=== PATIENT | male | born 1940 | race Caucasian/White ===

== ENCOUNTER → 2020-03-14 13:28 | Outpatient (BNVA) | payer MEDICARE, OTHER, SELFPAY | PROVIDERS: Family Provider Nurse Practitioner; PCP Nurse Practitioner; Visit Provider Urology | DX: N40.1 Benign prostatic hyperplasia with lower urinary tract symptoms (principal); N40.0 Benign prostatic hyperplasia without lower urinary tract symptoms; N13.8 Other obstructive and reflux uropathy | CPT/HCPCS: 81001 ==

== ENCOUNTER → 2020-09-18 08:54 | Outpatient (BNVA) | payer MEDICARE, OTHER, SELFPAY | PROVIDERS: Family Provider Nurse Practitioner; PCP Nurse Practitioner; Visit Provider Urology | DX: N40.1 Benign prostatic hyperplasia with lower urinary tract symptoms (principal); N13.8 Other obstructive and reflux uropathy | CPT/HCPCS: 81003 ==

== ENCOUNTER → 2021-03-18 08:50 | Outpatient (BNVA) | payer MEDICARE, OTHER, SELFPAY | PROVIDERS: Family Provider Nurse Practitioner; PCP Nurse Practitioner; Visit Provider Urology | DX: N13.8 Other obstructive and reflux uropathy (principal); N40.1 Benign prostatic hyperplasia with lower urinary tract symptoms | CPT/HCPCS: 81003 ==

== ENCOUNTER → 2021-04-12 12:53 | Outpatient (BNVA) | payer MEDICARE, OTHER, SELFPAY | PROVIDERS: Family Provider Nurse Practitioner; PCP Nurse Practitioner; Visit Provider Urology | DX: Z01.812 Encounter for preprocedural laboratory examination (principal); Z20.822 Contact with and (suspected) exposure to COVID-19 | CPT/HCPCS: 87635 ==

== ENCOUNTER 2021-04-18 14:16 | Observation (INO) | payer MEDICARE, OTHER, SELFPAY ==
[2021-04-17 15:19] VITALS: BMI 26.2
[2021-04-18] VITALS (14 sets, daily range): BP systolic 105–160; BP diastolic 60–85; PULSE 60–80; RESP 12–20; TEMP 36.1–36.6; O2SAT 92–97
[2021-04-18] MEDS: sodium chloride 0.9% 1,000 ML 30 ML IV (11:14)
--- NOTE | 2021-04-18 12:37 | W.PM.OPSUD ---
Surgery/Procedure H&P Update DATE OF PROCEDURE: April 18, 2021 DATE H&P PERFORMED: 03/18/21 H&P UPDATE INFORMATION: I have reviewed H&P completed within last 30 days, I have examined patient prior to procedure, No changes to prior documentation and H&P is in [facility] on date indicated PREOP DIAGNOSIS: Refractory BPH/obstruction PLANNED PROCEDURE: Operation Date: 04/18/21 13:05 Proposed Procedures p Cystoscopy(Not Applicable) - Nicolas Byrd MD s Transurethral Resection Of Prostate(Not Applicable) - Nicolas Byrd MD
[2021-04-18] MEDS: levofloxacin-dextrose 5 % 500 MG/100 ML PREMIX 100 MG IV (12:48)
--- NOTE | 2021-04-18 12:48 | P.OP_ITS ---
Operative Report Date of procedure: April 18, 2021 Pre-op Diagnosis: Refractory BPH/obstruction Post-op diagnosis: same Procedure Done: Cystoscopy, transurethral resection/vaporization of the prostate Pathology: other Pathology: Prostate chips Surgeon: Rochelle Anesthesia: General Estimated blood loss: Minimal Urine output: Not measured Complications: none Findings: Trilobar enlargement of the prostate. Condition: stable Disposition: PACU Brief History: Mr. Hall is a very pleasant 80-year-old white male with progressive bladder outlet obstructive symptoms for many years. Has been on maximal medical therapy with persistence of symptoms and ultimately after a long period of consideration decided to proceed with transurethral resection/vaporization of the prostate. Benefits and risks thoroughly discussed. Informed consent was obtained. Procedure: After routine preoperative evaluation examination and obtaining of informed consent he was taken to the operating suite on 04/18/2021 where general anesthesia was administered without difficulty after appropriate timeout was performed, SCDs confirmed to be functioning, preoperative antibiotics administered, beta- donna protocol confirmed. Prepped and draped in usual sterile fashion in dorsolithotomy position paying careful attention to avoiding pressure points. 21 [place] cystoscope with 30 degree lens was introduced into the urethral meatus and advanced into the bladder without difficulty. The bladder was systematically examined with 30 and 70 degree lenses. The orifices were confir med to be well away from the bladder neck. Bladder wall showed significant trabeculation. No other significant pathologic features were identified. Urethra was then calibrated with Bailey sounds and easily accommodated 30 Bruneian. 2% lidocaine jelly was instilled into the urethra and then a 25 [place]uneian continuous-flow resectoscope sheath with visual obturator in place was advanced into the bladder without difficulty. The gyrus bipolar system was utilized with the super loop initially and the button probe for vaporization. Resection: Circumferential resection of the bladder neck was performed to resect the intravesically protruding median lobes. Resection was taken down to the circular fibers of the bladder neck. The left lateral lobe was then resected from the bladder neck out to but not distal to the verumontanum and down to the surgical capsule. The right lateral lobe was then resected in the same longitudinal extent and depth. There remained a large amount of tissue on the floor the prostate and this was also resected in the same fashion. Periodic use of the button probe was conducted for hemostasis and vaporization during resection of these areas. All chips were evacuated from the bladder. There did remain some small amount of tissue at the apex of the prostate at the level of the verumontanum which was carefully trimmed away paying careful attention to not resecting distal to the verumontanum. The button probe was then utilized for vaporization of some additional posterior floor. It is estimated that about 30% of the tissue was vaporized and not resected. Sculpting of the prostatic fossa and obtaining meticulous hemostasis. On final inspection all chips were confirmed to be out of the bladder (Ermelinda evacuator), the orifices were undisturbed in the resection, and the tissue distal to the verumontanum was also undisturbed. Bladder was drained with a 22 Bruneian Kline three-way catheter with 30 cc placed in the balloon Drainage was clear. Light flow CBI was initiated Tolerated procedure well without complications and was awakened in the operating room and returned to the care of room in stable condition. PLANS: 1. Admit to observation status 2. Maintain CBI with weaning off as tolerated 3. Likely discharge tomorrow without catheter. Final determination pending
--- NOTE | 2021-04-18 12:56 | ANES.PREANE2 ---
Pre-Anesthetic Assessment Pre-Anesthetic Assessment: Height/Weight: Height 1.75 m Weight 80.739 kg Temp Pulse Resp BP Pulse Ox 97.9 F 70 18 131/85 96 04/18/21 11:02 04/18/21 11:02 04/18/21 11:02 04/18/21 11:02 04/18/21 11:02 Preop Diagnosis: Refractory BPH/obstruction Proposed Procedure: Operation Date: 04/18/21 13:05 Proposed Procedures p Cystoscopy(Not Applicable) - Nicolas Byrd MD s Transurethral Resection Of Prostate(Not Applicable) - Nicolas Byrd MD Was Beta Melly taken within 24 hours: N/A Was Clonidine taken within 24 hours: N/A Last intake: Intake Last Liquid Date 04/18/21 Last Liquid Time 05:00 Last Solid Date 04/17/21 Last Solid Time 19:30 Social: Social History: No alcohol and No tobacco Exam: Pre-Anes Outpt Exam: alert, oriented x 3, clear to auscultation bilaterally and regular rate & rhythm Airway: Submandibular: WNL Cervical ROM: WNL MP: 2 Dentition: False Pulmonary: Pulmonary: COPD CV/HEM: CV/HEM: DVT and HTN Comments: Pacemaker : : Chronic renal Insufficiency Anesthetic Plan: ASA status: 3 Anesthesia: General Risk of > 500 ml blood loss (7ml/kg in children): No Meds/Allergies Current Medications: Current Medications Generic Name Dose Route Start Last Admin Trade Name Freq PRN Reason Stop Dose Admin Sodium Chloride 1,000 mls @ 30 ml s/hr 04/18/21 11:00 04/18/21 11:14 Sodium Chloride 0.9% IV 04/19/21 10:59 30 mls/hr .Q24H DEBBI Administration PFSH Anesthesia PFSH: Medical History BPH w urinary obs/LUTS CKD (chronic kidney disease) DVT (deep venous thrombosis) HTN (hypertension) AMPARO on CPAP Surgical History S/P appendectomy S/P cholecystectomy S/P tonsillectomy Status cardiac pacemaker Family History Mother CAD (coronary artery disease) Cancer Sister Cancer Social History Smoking and tobacco status: former smoker Alcohol intake: never Marital status: Current occupational status: retired History of recent travel: No Data Anesthesia Cardiac Studies: No Data to Display
[2021-04-18] MEDS: lidocaine 2% Urojet 20 mL TOPICAL (14:13)
--- NOTE | 2021-04-18 14:57 | ANE.PACU2 ---
Inpatient post-anesthesia follow up: Airway intact: Yes Vital signs: Temperature 97.7 F Pulse Rate 61 Respiratory Rate 12 Blood Pressure 124/68 Pulse Oximetry 96 Oxygen Delivery Me thod Room Air Oxygen Flow Rate Fraction of Inspir ed Oxygen Hydration adequate: Yes Nausea and vomiting: No Pain level: 2 Mental status: Baseline
[2021-04-18] MEDS: sodium chloride 0.9% 1,000 ML 50 ML IV (17:12)
[2021-04-18] MEDS: gabapentin 100 mg Capsule 300 MG PO (17:13)
[2021-04-18 21:16] LABS: Glucose Point of Care 160 mg/dL (70-110)
[2021-04-19 06:16] VITALS: PULSE 77; RESP 19; O2SAT 93
--- NOTE | 2021-04-19 07:04 | PM.DCS ---
Discharge Providers Date of Admission: 04/18/21 14:16 Date of Discharge: April 19, 2021 Attending Provider at Admission: Nicolas Byrd MD Attending Provider at Discharge: Nicolas Byrd MD Primary Care Provider: Rufino Pinon Diagnoses at Discharge Discharge Diagnosis (1) BPH w urinary obs/LUTS: Status: Acute Permanent problem details: Failed medical therapy (2) Urethral stricture: Status: Acute (3) HTN (hypertension): Status: Acute (4) CKD (chronic kidney disease): Status: Acute Reason for Visit Reason for Visit: transurethral resection of prostate Hospital Course Hospital Course Admitted on the day of the procedure which went very well. Unremarkable postoperative course. Catheter removed on postoperative day #1 voided spontaneously with clearing urine and good emptying. Discharged on postop day #1 in stable condition. Explicit instructions provided. Physical Exam Const: COMMON NORMALS: no acute distress and alert : BLADDER/KIDNEY EXAM: Yes bladder normal to palpation TESTES: Yes testicular mass OTHER: Urine is clear with no CBI Neuro: SENSORIUM/ORIENTATION: Yes alert Psych: COMMON NORMALS: mental status grossly normal, Normal thought process present and cooperative ATTITUDE: Yes calm and Yes engaged THOUGHT PROCESS: Normal thought process present Urinary Catheter Management^: 3: Cath Placed During This Visit: yes Reason for Continuing Indwelling Catheter: Perioperative Use in Selected Surgeries Urinary Catheter Date of Insertion: 04/18/21 Urinary Catheter Time of Insertion: 13:53 Discharge Data Data Completed and Pending: Pending at discharge Category Date Time Status Pathology: Surgic al [PTH] Routine Pth 04/18/21 14:13 Ordered Labs from last 24 hours 04/18/21 21:01 POC Glucose 160 H Vitals: Last Vital Signs Temp 98 F 04/18/21 17:45 Pulse 77 04/19/21 06:16 Resp 19 H 04/19/21 06:16 BP 130/78 04/18/21 17:45 Pulse Ox 93 04/19/21 06:16 Discharge Plan Discharge Patient Disposition: Home Condition: Stable Prescriptions: Continued cholecalciferol (vitamin D3) 125 mcg (5,000 unit) capsule 125 mcg PO DAILY RF: 0 alfuzosin 10 mg tablet extended release 24 hr 10 mg PO DAILY Qty: 90 RF: 3 finasteride 5 mg tablet 5 mg PO DAILY Qty: 90 RF: 3 albuterol sulfate [ProAir HFA] 90 mcg/actuation HFA aerosol inhaler 2 puff INHALATION Q6H PRN (Reason: sob) RF: 0 Refresh Liquigel 1 % drops, liquid gel 1 drop ophthalmic (eye) BID RF: 0 fluticasone propionate 50 mcg/actuation spray,suspension 1 spray INTRANASAL DAILY RF: 0 amlodipine 5 mg tablet 5 mg PO DAILY RF: 0 gabapentin 100 mg capsule 300 mg PO BID RF: 0 omeprazole magnesium [Prilosec OTC] 20 mg tablet,delayed release (DR/EC) 20 mg PO DAILY RF: 0 Held aspirin [Aspir-81] 81 mg tablet,delayed release (DR/EC) 81 mg PO DAILY RF: 0 Hold Instructions: Resume on 04/29/21. Discharge Orders: Discharge Order (Routine); Ordered 04/19/21 Ordered By: Nicolas Byrd Referrals: Nicolas Byrd MD [Physician] - 6 Weeks (Flow rate PVR) Discharge Diet: Usual diet Discharge Activity: Limit activity as instructed Patient Instructions: Opioid Safety Activity Restrictions/Additional Instructions: 1. Avoid lifting >10 pounds for least 3 weeks. Longer if having active bleeding. 2. Please call the hospital film drying machine operator if you have any concerns or questions after hours they can always reach. 3. Avoid constipation. Use stool softeners or laxatives as needed to avoid straining. 4. Please call next week if you have not heard from us regarding your pathology report. [phone] Discharge Attestations Time Spent in Discharge Care*: less than 30 min Quality Metrics Clinical Quality Measures During this hospital stay, did patient experience: None Coding Level of Care Code Acute Chg FW [place] note Diagnoses BPH w urinary obs/LUTS N40.1; N13.8 Urethral stricture N35.919 HTN (hypertension) I10 CKD (chronic kidney disease) N18.9
[2021-04-19 07:18] VITALS: BP 127/70; PULSE 60; RESP 17; TEMP 36.6; O2SAT 92
[2021-04-19] MEDS: finasteride 5 mg Tablet PO (08:09)
[2021-04-19] MEDS: amlodipine 5 mg Tablet PO (08:10)
[2021-04-19 11:11] VITALS: BP 126/74; PULSE 61; TEMP 36.4; O2SAT 94
[2021-04-19 11:15] LABS: Glucose Point of Care 133 mg/dL (70-110)
[2021-04-19 11:20] VITALS: BP 136/73; PULSE 51; RESP 17; TEMP 36.5; O2SAT 95
--- NOTE | 2021-04-19 13:50 | PC.NURSE ---
Post Void Residuals #1 100mL void. 150 residual #2 150mL void. 150 residual #3 175mL void. 140 residual #4 175mL void. <100 residual #5 150mL void. 140 residual #6 125 void. 80 residual. Notfied perez Duncan to discharge.
== END 2021-04-19 14:04 | disposition home or self-care (01) ==
LOC: MEDSURG 14:17
PROVIDERS: Admitting Provider Urology; PCP Nurse Practitioner; Visit Provider Urology
PROC: 0TJB8ZZ Inspection of Bladder, Via Natural or Artificial Opening Endoscopic (ICD-10-PCS; CPT 52000; principal; 2021-04-18 13:05)
PROC: 0VT08ZZ Resection of Prostate, Via Natural or Artificial Opening Endoscopic (ICD-10-PCS; CPT 52601; 2021-04-18 13:05)
DX: N40.1 Benign prostatic hyperplasia with lower urinary tract symptoms (principal); J44.9 Chronic obstructive pulmonary disease, unspecified; Z86.718 Personal history of other venous thrombosis and embolism; Z95.0 Presence of cardiac pacemaker; G47.33 Obstructive sleep apnea (adult) (pediatric); N13.8 Other obstructive and reflux uropathy; N35.919 Unspecified urethral stricture, male, unspecified site; I12.9 Hypertensive chronic kidney disease with stage 1 through stage 4 chronic kidney disease, or unspecified chronic kidney disease; N18.9 Chronic kidney disease, unspecified; Z87.891 Personal history of nicotine dependence
CPT/HCPCS: 52601; 36416; 82962; 88305; G0378; J1100; J1956; J2370; J2405; J2704; J2710; J3010; J3490; J7030

== ENCOUNTER → 2021-06-03 08:23 | Outpatient (BNVA) | payer MEDICARE, OTHER, SELFPAY | PROVIDERS: PCP Nurse Practitioner; Visit Provider Urology | DX: N40.1 Benign prostatic hyperplasia with lower urinary tract symptoms (principal); N13.8 Other obstructive and reflux uropathy; N35.919 Unspecified urethral stricture, male, unspecified site; R30.0 Dysuria | CPT/HCPCS: 81003 ==

== ENCOUNTER → 2022-01-06 12:57 | Outpatient (BNVA) | payer MEDICARE, OTHER, SELFPAY | PROVIDERS: PCP Nurse Practitioner; Visit Provider Urology | DX: N40.1 Benign prostatic hyperplasia with lower urinary tract symptoms (principal); N13.8 Other obstructive and reflux uropathy | CPT/HCPCS: 81003 ==